=== PATIENT | female | born 1955 | race Caucasian/White ===

== ENCOUNTER → 2021-06-20 09:30 | Outpatient (CLI) | payer MEDICARE, MEDICAID, SELFPAY ==
[2021-06-20 11:53] LABS: Add Manual Diff / Slide Review NO; Basophils Absolute Auto 100 /uL (0-100); Eosinophils Absolute Auto 200 /uL (0-450); Eosinophils Percent Auto 3.9 % (2-4); Hematocrit 39.6 % (36-46); Lymphocytes Absolute Auto 1100 /uL (1100-4500); Lymphocytes Percent Auto 18.9 % (25-40); Mean Corpuscular HGB Conc 32.9 % (30-36); Mean Corpuscular Hemoglobin 31.6 PG (26-34); Monocytes Absolute Auto 700 /uL (0-900); Monocytes Percent Auto 12.1 % (3-14); Neutrophils Absolute Auto 3800 /uL (1500-7000); Neutrophils Percent Auto 64.1 % (50-75); Platelet Count 364 X10^3/uL (150-400); Red Blood Cell Count 4.12 X10^6/uL (4.0-5.2); Red Cell Distribution Width 13.7 % (11.6-14.8); White Blood Cell Count 5.9 X10^3/uL (4.5-11.0)
[2021-06-20 11:57] LABS: Hemoglobin A1C% w Est Avg Glu 5.2 % (4.0-6.0)
[2021-06-20 12:30] LABS: BUN Creatinine Ratio 22.6 (6-22); Blood Urea Nitrogen 12 mg/dL (7-17); Calcium 10.5 mg/dL (8.4-10.2); Carbon Dioxide 28 mmol/L (22-32); Chloride 102 mmol/L (98-107); Estimated Glomerular Filt Rate > 60.0 mL/min (>60); Glucose 89 mg/dL (80-110); HEMOLYSIS < 15 (0-50); Potassium 4.8 mmol/L (3.4-5.1); Sodium 138 mmol/L (137-145)
== END ==
PROVIDERS: Referring Provider Orthopaedic Surgery; Visit Provider Orthopaedic Surgery
DX: Z01.818 Encounter for other preprocedural examination (principal); R73.9 Hyperglycemia, unspecified; Z01.812 Encounter for preprocedural laboratory examination; N39.0 Urinary tract infection, site not specified
CPT/HCPCS: 36415; 80048; 83036; 85025; 93005; 93010

== ENCOUNTER → 2021-06-22 14:01 | Outpatient (CLI) | payer MEDICARE, MEDICAID, SELFPAY ==
[2021-06-22 17:32] LABS: COVID19 -Nasal RAPID Negative (Negative)
== END ==
PROVIDERS: Visit Provider Physician Assistant
DX: Z20.822 Contact with and (suspected) exposure to COVID-19 (principal)
CPT/HCPCS: 87635; C9803

== ENCOUNTER 2021-06-23 11:11 | Day surgery (SDC) | payer MEDICARE, MEDICAID, SELFPAY ==
[2021-06-18 07:29] VITALS: BMI 20.5
[2021-06-23] VITALS (15 sets, daily range): BP systolic 94–142; BP diastolic 59–87; PULSE 51–67; RESP 11–18; TEMP 36.1–37; O2SAT 97–100; BMI 20.5
--- NOTE | 2021-06-23 06:30 | DI.RAD.S_ITS ---
PROCEDURE: XR HIP W PEL IF DONE RT 2V INDICATIONS: postop films TECHNIQUE: 10 intraoperative fluoroscopic views of the hip were acquired. COMPARISON: None. FINDINGS: Intraoperative fluoroscopic images shows right total hip arthroplasty in progress. There is prior left total hip arthroplasty. IMPRESSION: Fluoro guidance was provided intraoperatively for right total hip arthroplasty. Dictated by: Dharmesh Padilla M.D. on 06/23/2021 at 17:07 Approved by: Dharmesh Padilla M.D. on 06/23/2021 at 17:07
[2021-06-23] MEDS: ACETAMINOPHEN 325 MG TABLET 975 MG PO (11:54)
[2021-06-23] MEDS: PREGABALIN 75 MG CAPSULE PO ×2 (11:58→11:59)
[2021-06-23] MEDS: CELECOXIB 200 MG CAPSULE PO (11:58)
[2021-06-23] MEDS: VANCOMYCIN 1,000 MG/200 ML PIGGYBACK 200 MG IV (11:59)
[2021-06-23] MEDS: LACTATED RINGERS 1,000 ML 42 ML IV ×2 (12:00→15:03)
--- NOTE | 2021-06-23 12:37 | PM.PREOP ---
Pre-operative Note COVID-19 COVID-19 status: Negative Interval Note History & Physical reviewed/Exam performed by Physician: Yes Changes to H&P: No
--- NOTE | 2021-06-23 12:37 | PM.OP.1 ---
Operative Date/Time/Diagnoses Date of procedure: 06/23/21 Time of procedure: 13:00 Pre-op diagnosis: Right hip osteoarthritis with femoral head collapse and AVN Post-op diagnosis: same Procedure & Clinicians Procedure: Right total hip arthroplasty anterior approach Same procedure as scheduled: Yes Indications: The patient has had progressively worsening right hip pain with radiographic changes consistent with arthritis. Non-operative management has failed and the patient has requested total hip replacement. The risks, benefits and alternatives to surgery were discussed with the patient prior to proceeding. Risks discussed included, but were not limited to, failure to relieve pain, leg length discrepancy, dislocation, stiffness, infection, nerve damage, deep venous thrombosis, pulmonary embolism, stroke, coma, heart attack, permanent paralysis and , as well as the potential need for eventual revision of the prosthetic. Surgeon: Kaila Floyd Computer Technician: Jacy Hahn Anesthesia Type: General and Spinal Operative Notes Findings: Severe right hip osteoarthritis Closure Type: primary Specimen(s): none sent Prosthetic devices, grafts, tissues, transplants, or devices: Floyd and Nephew anthology standard offset size 8 standard offset, 36 by - 3 Oxinium head, 54 cup,one 6.5 mm screw Estimated Blood Loss (mL): 250 Blood products transfused: none Procedure in detail: The patient was brought to the operating room. Patient was carefully positioned in the supine position. Time-out was performed and antibiotics were given. Anesthesia was induced. She was positioned in the on the table in order to allow hyperextension of the hip. The right lower extremity was prepped and draped in a standard sterile fashion. An anterior right hip incision was made 1 fingerbreadth lateral to the anterior superior iliac spine and extended distally towards the greater trochanter. Dissection was carried out through skin and subcutaneous tissues. Superficial hemostasis was achieved. The fascia over the tensor fascia maximo was defined and incised with a knife. Two Allis clamps were used to grasp the fascia. Tensor fascia maximo was retracted laterally. A gelpi retractor was placed. Dissection was carried out down along the neck. The circumflex vessels were carefully identified and cauterized with the Aqua Mantis. There was good visualization of the femoral neck. A Cobra was placed superior to the neck and the gluteus fibers were carefully stripped from that superior aspect of the capsule. A 2nd retractor was placed along the inferior aspect of the neck. The rectus insertion along the capsule was partially released. A 3rd retractor that was then gently placed over the rim of the acetabulum under the rectus. Capsule was carefully incised and released from the intertrochanteric line circumferentially superior to the mid sagittal line and inferiorly to the mid sagittal line until the lesser trochanter was palpable. A tag stitch was placed both in the superior and inferior limb of the capsular insertion. Along the acetabulum capsule was also released up to the mid sagittal 12:00 position. A portion of the labrum was resected. A saw was used to perform an osteotomy at the level of the intertrochanteric line and the junction of the superior femoral neck leaving approximately 1 finger breath of residual inferior neck above the lesser trochanter. A 2nd cut was made along the femoral neck at the base of the head and a napkin ring of neck was removed. Corkscrew was placed in the femoral head and the head was removed without difficulty. Retractors were then repositioned around the acetabulum. Residual labrum was resected and additional osteophytes were removed. A reamer that was 4 mm below the templated size was placed by hand in the acetabulum and it was reamed to centralize the acetabulum. It was then reamed up to 2 under the templated size and fluoroscopy was brought in to confirm the position of the reaming and depth of reaming. I reamed 1 under the anticipated size. A trial cup was placed and noted that it was appropriately sized and fluoroscopy confirmed position and depth. The component was open and inserted without difficulty fluoroscopic imaging was used to confirm that the cup had been adequately seated and was well positioned. It was further stabilized with a screw. Neutral trial liner was placed. The cup was tested and noted to be stable. Attention was then directed to the femur. The femur was gently hyperextended additional capsular release was performed as needed in order to allow adequate visualization of the proximal femur with elevation of the femur. Patient was placed in a hyperextended slightly adducted position with maximum external rotation. Box osteotome was used to check for any residual neck as well as sclerotic bone along the trochanter. [place] pepper was placed in the femur. Additional broaching was performed. Canal finder was used to determine the alignment of the canal and position. Size 1 broach was placed. The canal was then appropriately broached up to the templated size as long as there was adequate stability of the broach and serial advancement of the broach without excessive impingement. Specific attention was directed at avoiding varus attempting to direct the distal aspect of the broach more anteriorly and avoiding excessive anteversion. Trial reduction showed acceptable range of motion, good stability, no posterior impingement, zoroastrianism of leg length and appropriate lateral shuck. I also hyperflexed the hip and checked that there was no impingement anteriorly and there was good stability with flexion, adduction and internal rotation. Marcaine and Exparel were injected. The stem was placed without difficulty. Repeat trial reduction and x-ray showed acceptable overall position, length, and no evidence of the femoral fracture. Final head was placed. Wound was meticulously irrigated with normal saline. The hip was reduced and additional Exparel and Marcaine were injected. The capsule was closed with interrupted nonabsorbable sutures. The fascia of the tensor was closed with interrupted and running Vicryl. No drain was placed. Any tensor fascia maximo muscle that appeared to be contused or injured which was a minimal amount was carefully resected. Capsule around the tensor was injected with Exparel and Marcaine. The skin was closed with barbed stitches for the subcutaneous tissue and skin. We also used surgical glue. The wound was dressed sterilely. Brief Betadine soak was also used and was meticulously irrigated with normal saline. Patient was transferred to recovery room in satisfactory condition. Complications: none Post-operative Condition: stable Disposition: Acute Care Plan for aftercare: The patient will be maintained on a standard total hip replacement protocol with weight bearing as tolerated and anterior hip precautions. The patient will receive Aspirin and sequential compression devices for DVT prophylaxis. The patient will be discharged home when safe for the home environment.
--- NOTE | 2021-06-23 12:47 | SUR.PREOP ---
CGH bath done with 6 wipes as patient did not do home pre-wash or Mupericon. Dr Floyd notified. procedure: CHG Bathing Process?Using All Cloths Use all six cloths in the following order: Cloth 1: Neck, shoulders, and chest. Cloth 2: Both arms, both hands, web spaces, and axilla. Cloth 3: Abdomen and then groin/perineum. Cloth 4: Right leg, right foot, and web spaces. Cloth 5: Left leg, left foot, and web spaces. Cloth 6: Back of neck, back, and then buttocks.
[2021-06-23] MEDS: CEFAZOLIN 1 GM VIAL 2 GM IV ×2 (13:22→22:11)
[2021-06-23] MEDS: TRANEXAMIC ACID 1,000 MG VIAL 1000 MG INJ ×2 (13:25→15:36)
--- NOTE | 2021-06-23 13:42 | SUR.OPER ---
Patient supine on padded [place] table, one arm on padded arm board at <90, other arm padded and secured with tape across patient's chest, both legs secured in padded traction boots and positioned per surgeon, padded post at patient's groin, pressure points checked and padded.
[2021-06-23] MEDS: BUPIVACAINE LIPOSOME 266 MG/20 ML VIAL INJ (13:48)
[2021-06-23] MEDS: BUPIVACAINE 0.25% (PF) VIAL 30 ML INJ (13:49)
[2021-06-23] MEDS: EPINEPHrine 1 MG/ML SUBCUT (13:50)
--- NOTE | 2021-06-23 16:00 | DI.RAD.S_ITS ---
PROCEDURE: XR HIP W PEL IF DONE RT 2V INDICATIONS: RIGHT TOTAL HIP TECHNIQUE: AP pelvis and lateral view of the right hip acquired. COMPARISON: [facility], ROM, XR HIP W PEL IF DONE RT 2V, 06/23/2021, 14:40. FINDINGS: Bones: Patient is status post right total hip arthroplasty, with hardware components in expected positions. The hip joint appears congruent. The visualized bony structures appear intact. There is also prior left total hip arthroplasty with anatomic left hip alignment. Soft tissues: Overlying postoperative changes are noted. No suspicious soft tissue densities. IMPRESSION: Postop changes from right total hip arthroplasty with anatomic right hip alignment. Dictated by: Dharmesh Padilla M.D. on 06/23/2021 at 17:09 Approved by: Dharmesh Padilla M.D. on 06/23/2021 at 17:10
--- NOTE | 2021-06-23 16:59 | SUR.PHASEI ---
PACU: REPORT GIVEN by phone TO HERMINIA QUINONEZ. PATIENT BROUGHT UP TO RM 217 WITH ALL BELONGINGS IN STABLE CONDITION. MET CRISTIANO HOPE AT BEDSIDE FOR FACE TO FACE HANDOFF. VSS, SCD'S ON, BED LOCKED IN LOW POSITION. CALL LIGHT IN REACH.
[2021-06-23] MEDS: IBUPROFEN 400 MG TABLET PO ×2 (19:57→22:17)
[2021-06-23] MEDS: LACTATED RINGERS 1,000 ML 125 ML IV (19:58)
--- NOTE | 2021-06-23 20:01 | PC.NURSE ---
1700: report from Asya at bedside. patient arrived from PACU, denies pain/discomfort, smiling and alert/oriented. small aquacel dressing to R hip CDI. patient wants to rest for a bit, allowed to sleep. 1999: denies pain/discomfort, ice pack offered. able to change position w/o difficulty. + CSM checks. continues w/ IVF. SCDs on, call light w/in reach.
[2021-06-23] MEDS: ACETAMINOPHEN 325 MG TABLET 650 MG PO (22:10)
[2021-06-23] MEDS: ASPIRIN EC 81 MG TABLET PO (22:14)
[2021-06-23] MEDS: DOCUSATE 100 MG CAPSULE PO (22:15)
[2021-06-23] MEDS: LORazepam 0.5 MG TABLET PO (22:23)
[2021-06-24] VITALS: BMI 20.5
[2021-06-24] MEDS: CEFAZOLIN 1 GM VIAL 2 GM IV (04:44)
[2021-06-24 04:54] VITALS: BP 103/59; PULSE 54; RESP 14; TEMP 36.4; O2SAT 96
[2021-06-24 06:32] LABS: Hematocrit 33.2 % (36-46); Hemoglobin 10.8 g/dL (12.0-16.0)
[2021-06-24 07:25] VITALS: BP 96/63; PULSE 56; RESP 14; TEMP 36.4; O2SAT 97
--- NOTE | 2021-06-24 08:17 | P.DS_ITS ---
History of Present Illness History of Present Illness Date Patient Seen: 06/24/21 Time Patient Seen: 08:17 Chief complaint: Right hip pain Narrative: Patient states her right hip pain is mild. Denies fever or chills. No nausea or vomiting. Patient does have caregiver home to assist her. Discharge Providers Provider Discharge Date: 06/24/21 Consults: 06/23/21 06:30 Consult to Anesthesiology Routine Comment: Consulting Provider: Anesthesiologist Reason for consultation: Regional block for post operative pain control 06/23/21 17:23 Consult to Discharge Planning Routine Comment: Consult to Physical Therapy Evaluate & Treat Comment: Physician Instructions: post op MAYA protocol Consult to Respiratory Therapy Evaluate & Treat Comment: Physician Instructions: Evaluate and treat Discharge provider: Liu Cunha PA-C Summary Hospital Course Discharge Diagnosis: Right hip osteoarthritis with femoral head collapse and AVN Hospital Course: Right total hip arthroplasty anterior approach Same procedure as scheduled: Yes Indications: The patient has had progressively worsening right hip pain with radiographic changes consistent with arthritis. Non-operative management has failed and the patient has requested total hip replacement. The risks, benefits and alternatives to surgery were discussed with the patient prior to proceeding. Risks discussed included, but were not limited to, failure to relieve pain, leg length discrepancy, dislocation, stiffness, infection, nerve damage, deep venous thrombosis, pulmonary embolism, stroke, coma, heart attack, permanent paralysis and , as well as the potential need for eventual revision of the prosthetic. Surgeon: Kaila Floyd Material Requisitioner: Jacy Hahn Anesthesia Type: General and Spinal Operative Notes Findings: Severe right hip osteoarthritis Closure Type: primary Specimen(s): none sent Prosthetic devices, grafts, tissues, transplants, or devices: Floyd and Nephew anthology standard offset size 8 standard offset, 36 by - 3 Oxinium head, 54 cup,one 6.5 mm screw Estimated Blood Loss (mL): 250 Blood products transfused: none Patient admitted to the hospital for the above-mentioned procedure. Patient consented to the same. Patient underwent right total hip arthroplasty, anterior approach on June 23, 2021. Patient back in her room recovering well as in stable condition. Patient will be discharged home today after physical therapy of safe for home environment. Status at Discharge Cognitive/behavioral status at discharge: at baseline, oriented Functional status at discharge: uses cane/walker Overall status at discharge: patient is progressing back to baseline Exam Vital Signs (past 8 hours): - 06/24/21 04:54 06/24/21 07:25 Temperature 97.5 F L 97.5 F L Pulse Rate 54 L 56 L Respiratory Rate 14 14 Blood Pressure 103/59 L 96/63 Pulse Oximetry 96 97 Oxygen Delivery Method Room Air Oxygen Flow Rate 0 Narrative Exam Narrative: Pleasant 65-year-old female resting comfortably in bedside chair in no apparent distress. Dressing is Clean, dry, intact.. Neurovascular status is intact bilateral lower extremities. Objective Labs Result Diagrams: 06/24/21 04:50 Labs: Laboratory Results - last 24 hr 06/24/21 04:50 Hgb 10.8 L Hct 33.2 L PFSH Social History household members: family Smoking Status: Former smoker alcohol intake: current Discharge Assessment & Plan Assessment and Plan Assessment: Patient progressing as expected status post right total hip arthroplasty, anterior approach Plan of Treatment: Weight-bearing as tolerated Anterior hip precautions Discharge home today in stable condition. Discharge Plan Discharge Plan Patient Disposition: Home Provider Discharge Comment: Discharge home today after physical therapy if safe Discharge orders & Medications Discharge Orders: Discharge (Order); Ordered 06/24/21 Ordered By: Liu Cunha Prescriptions: New acetaminophen 325 mg Tablet 650 mg PO TID Qty: 60 RF: 0 polyethylene glycol 3350 17 gram Powder In Packet 17 gm PO DAILY PRN (Reason: Constipation) Qty: 10 RF: 0 aspirin 81 mg Tablet,Delayed Release (Dr/Ec) 81 mg PO BID Qty: 60 RF: 0 ibuprofen 400 mg Tablet 400 mg PO Q4HR Qty: 60 RF: 0 oxycodone 5 mg Tablet 5 mg PO Q3HR PRN (Reason: Pain, Moderate (4-6)) Qty: 40 RF: 0 Continued lorazepam 0.5 mg Tablet 0.5 mg PO BEDTIME PRN (Reason: Insomnia) RF: 0 Follow up/Referrals: Kaila Floyd MD [Physician] - ( 2 weeks) Diet/Activity/Treatments Diet: Diet as Tolerated Activity: Weight-bearing as tolerated with anterior hip precautions Cold/Heat Therapy: Ice as needed Skin/Wound/Dressing Care Report to your healthcare provider any signs of infection, such as:: chills, fever, increased pain, unusual drainage and unusual redness Dressing: Keep dressing clean and dry Visit Report/Discharge Packet Instructions: DI for Hip Replacement Stand Alone Forms: Surgery Discharge Discharge Data Attending Provider: Kaila Floyd
[2021-06-24 09:40] VITALS: O2SAT 93
[2021-06-24] MEDS: OXYCODONE IR 5 MG TABLET PO ×2 (09:52→13:53)
[2021-06-24] MEDS: ASPIRIN EC 81 MG TABLET PO (09:53)
[2021-06-24] MEDS: IBUPROFEN 400 MG TABLET PO (09:53)
[2021-06-24] MEDS: ACETAMINOPHEN 325 MG TABLET 650 MG PO (09:53)
[2021-06-24] MEDS: DOCUSATE 100 MG CAPSULE PO (09:53)
--- NOTE | 2021-06-24 11:09 | CM.DANOTE ---
DCP: Case received, EMR reviewed and met with patient. Introduced self and role. Was able to obtain information regarding patient's baseline activity status prior to surgery, as well as her current living situation. DCP assessment completed with information currently available. Patient is a 65 year old female who admitted yesterday morning to the care of the orthopedic team. PCP: Dr. Cobian. Payer: confirmed: Medicare/Medicaid [employer] Program. Patient came to the hospital via private vehicle for a surgical procedure. She had right total hip arthroplasty. Patient has history of osteoarthritis. Met with patient in her room. She was sitting up in her chair, alert and oriented. Confirmed that patient resides in [place] alone. She is a , independent at her baseline. She does use a cane if needed. Stated, she used to get around better, would ride her bike 15 miles, but her hip became worse, and not able to do this. She indicated that she would be staying with her brother, Kwame, when she goes home. P: Patient is supposed to discharge home today. Cristal Elizondo RN/Production Technologist
[2021-06-24 11:17] VITALS: BP 108/71; PULSE 60; RESP 16; TEMP 36.7; O2SAT 96
--- NOTE | 2021-06-24 11:35 | PT.IIE ---
Current Diagnoses Unilateral primary osteoarthritis, right hip (06/23/21) Surgery Performed Operation Date: 06/23/21 13:15 Actual Procedures p Total Hip Arthroplasty/Anterior Approach(Right) - Kaila Floyd MD Physical Therapy Inpatient Evaluation/Re-Eval M1 PT/OT-IP Prior Functional Status Start: 06/24/21 14:48 Freq: NEEDED Status: Active Protocol: Document 06/24/21 11:35 AB (Rec: 06/24/21 14:59 AB [id number]) Medical Review Prior Functional Status Medical History Reviewed Yes Communication able to make needs known Mobility and Gait pt stated that she is modified independent with all mobilities and ambulation without AD but has maxx using her SPC for the last 3-4 months due to hip pain Social History Household Members family,none Living Arrangements Mobile home Number of Floors (Floors) One Floor Number of Stairs To Enter/Railing? 2 steps L rail to enter Home Environment Standard Height Toilet,Walk in Shower Home Equipment Straight Cane,Hand Held Shower ,Grab Bars Near Toilet,Grab Bars In Shower Additional Social History Comment pt's lives on a motor home next to her brother's house; pt stated that she is going to stay at her brother house upon d/c M2 PT-IP Current Condition Start: 06/24/21 14:48 Freq: NEEDED Status: Active Protocol: Document 06/24/21 11:35 AB (Rec: 06/24/21 14:59 AB [email or web address]) Physical Therapy Current Condition Current Condition Evaluation Date 06/24/21 Treatment Diagnosis s/p R MAYA anterior approach; difficulty in walking Onset Date 06/23/21 Precautions Anterior Hip Precautions No Hip Extension,No Hip External Rotation Weight Bearing Status Weight Bearing Status Weight Bear as Tolerated Allowed Weight Bearing Amount (enter % RLE WBAT or #) (%) M3 PT-IP Subjective Start: 06/24/21 14:48 Freq: NEEDED Status: Active Protocol: Document 06/24/21 11:35 AB (Rec: 06/24/21 14:59 AB [email or web address]) Subjective Physical Therapy Visit Type Type Initial Evaluation Visit Start Time 11:35 Visit Stop Time 12:20 Total Visit Minutes 45 Number of LIBRARIAN SPECIAL LIBRARY Visits 0 Physical Therapy Visit Comments Patient Comments agreeable to do PT Therapy Pain Assessment Pain Present Pain Present Denied Pain M4 PT-IP Mobility and Gait Start: 06/24/21 14:48 Freq: NEEDED Status: Active Protocol: Document 06/24/21 11:35 AB (Rec: 06/24/21 14:59 AB [id number]) PT-Bed Mobility Assessment Supine to Sit Supine to Sit Standby Assistance Sit to Supine Sit to Supine Standby Assistance PT-Transfer Assessment Sit to and From Stand Sit to and from Stand Standby Assistance,Use of Upper Extremities Equipment Transfer Assistive Device Gait Belt,Front Wheeled Walker Orthotic/Prosthetic Devices or Brace: No Transfers Transfer Destination Chair Transfer Technique ambulated Transfer Ability Level of Assist Standby Assistance,1 Person Assistance,Use of Upper Extremities Comments Mobility Comments educated pt on hip precautions . completed supine to sit SBA. ambulated in room using FWW SBA. pt stated that she will be buy a FWW at the [employer] or the [employer]. ambulated in the hallway using FWW SBA ~ 200 ft. completed up/down steps using L rail initially min A and cues but able to complete CGA on 2nd set. pt ambulated back to her room SBA using FWW. sat on chair and positioned. set up for lunch. call light and table placed within reach. pt plans to stay at her brother's house upon d/c and stated that her brother will be able to assist her. Gait Assessment Gait Gait Assistance Required: Standby Assistance Distance (Feet) 200 Able to Maintain Weight Bearing Status Yes During Gait Assistive Devices Assistive Device Gait Belt,Front Wheeled Walker Orthotic/Prosthetic Devices or Brace: No Gait Deviations General Gait Pattern Decreased Stride Length, Decreased Feet Clearance Factors Limiting Gait Function Factors Limiting Gait Function Decreased Activity Tolerance, Decreased Strength,Difficulty Following Directions,Limited Range of Motion Stair Climbing Assessment Evaluation Level of Assist On Stairs Contact Guard Assistance Devices Stair Climbing Assistive Devices Left Railing Technique/Endurance Stair Climbing Direction Ascend and Descend Stair Climbing Technique Step to Step Number of Steps Climbed 3 Query Text: Stair Climbing Set # Repetitions (reps) 2 PT-Balance Assessment Sitting Balance and Reactions Static Sitting Balance Ability Good Dynamic Sitting Balance Ability Good Standing Balance and Reactions Static Standing Balance Ability Fair Dynamic Standing Balance Ability Fair Device Used FWW M5 PT-IP Objective Assessments Start: 06/24/21 14:48 Freq: NEEDED Status: Active Protocol: Document 06/24/21 11:35 AB (Rec: 06/24/21 14:59 AB [id number]) Orientation Orientation/Cognition Level of Alertness Confusional State Orientation Name,Place,Situation Language Function Ability No Deficits Noted Safety Awareness Decreased Safety Awareness Memory Description Short Term Impaired Gross Range of Motion Lower Extremity ROM Assessment Within Functional Limits Strength Lower Extremity Strength Assessment Right Impaired Hip 4-/5 Knee 4-/5 Sensation Assessment Sensation Gross Sensation WNL Muscle Tone Muscle Tone WNL Yes M6 PT-IP Treatment Start: 06/24/21 14:48 Freq: NEEDED Status: Active Protocol: Document 06/24/21 11:35 AB (Rec: 06/24/21 14:59 AB [id number]) Physical Therapy Treatment Education Education Provided Precautions,Weight Bearing Status,Post-Op Packet,Safety M7 PT-IP Assessment and Plan Start: 06/24/21 14:48 Freq: NEEDED Status: Active Protocol: Document 06/24/21 11:35 AB (Rec: 06/24/21 14:59 AB [email or web address]) PT Summary Assessment and Plan Potential Rehabilitation Potential Good Status of Condition at Evaluation Stable Summary Impairments Pain,ROM,Strength,Balance, Coordination,Sensation,Tone, Cognition,Bed Mobility, Transfers,Gait,Activity Tolerance Assessment Summary pt requiring SBA with ambulation using FWW and CGA for stair climbing using L rail. pt stated that her brother will be able to assist her as needed. reminded pt regarding setting up outpt PT and agreed. Goals Bed Mobility Goal Independent Transfer Goal Independent,Front Wheeled Walker Gait Goal Independent,Front Wheel Walker Gait Distance 250 Other Goals up/down 2 steps L rail ascending SBA Days to Meet Goals 5 Frequency of Treatment Frequency Of Treatment Twice a Day Treatment Plan Physical Therapy Treatment Plan Bed Mobility Training,Transfer Training,Gait Training, Therapeutic Exercise,Balance Retraining,Post Op Education, Discharge Planning,Hot or Cold Pack,Neuromuscular Re-ed, Coordination Retraining,Manual Therapy Precautions Anterior Hip Precautions No Hip Extension,No Hip External Rotation Other Precautions WBAT RLE Recommendations To Nursing Amount of Assist Needed Standby Assistance Discharge Recommendations PT Discharge Recommendations Home with Assistance, Outpatient PT Equipment Needed for Home Before FWW Discharge Transportation Needs at Discharge Private Vehicle
--- NOTE | 2021-06-24 15:54 | PC.NURSE ---
Discharge: Feels ready to d/c home. Seen by MD and given instructions. Seen by PT and cleared. Understands her total hip precautions. Reviewed discharge packet. Rx was esent. Wound care instructions given. Questions answered. Pt d/c home via auto brother.
== END 2021-06-24 15:10 | disposition home or self-care (01) ==
LOC: OR 11:18 → AC 13:18
PROVIDERS: Referring Provider Physical Medicine & Rehabilitation Pain Medicine; Visit Provider Orthopaedic Surgery
PROC: (CPT 27130; principal; 2021-06-23 13:15)
DX: M16.11 Unilateral primary osteoarthritis, right hip (principal); M87.051 Idiopathic aseptic necrosis of right femur
CPT/HCPCS: 27130; 36415; 73502; 76000; 85014; 85018; 97161; 97530; C1776; C9290; J0171; J0690

== ENCOUNTER → 2022-07-19 10:40 | Outpatient (CLI) | payer MEDICARE, SELFPAY ==
--- NOTE | 2022-07-19 | DI.CT.S_ITS ---
PROCEDURE: CT LE LT W CON INDICATIONS: TROCHANTERIC BURSITIS LEFT HIP TECHNIQUE: Noncontrast 3 mm axial sections acquired through the bony pelvis. Additional 3 mm axial sections acquired through the symptomatic hip joint, with coronal and sagittal reformats. COMPARISON: [facility] Outside Film, CT, CT HIP LEFT WITHOUT CONTRAST, 01/31/2022, 21:50. FINDINGS: Image quality: Diagnostic. Beam hardening artifacts from bilateral hip prosthesis are seen. Bones: Patient is status post bilateral total hip arthroplasty. Bilateral hip alignment is anatomic. No gross acute fracture or dislocation. No evidence of gross hardware loosening or failure. No suspicious intraosseous lesions. Soft tissues: There is fluid distending left greater trochanteric bursa consistent with bursitis. No abnormal soft tissue calcifications are seen. No other muscle or soft tissue abnormality is seen. There is no pelvic free fluid or free air. Bulky appearing uterus for patient's age is noted which may represent multiple uterine fibroids. No inguinal lymphadenopathy. IMPRESSION: 1. Prior bilateral total hip arthroplasty with anatomic hip alignment. No fracture or dislocation. No evidence of hardware complication. 2. Fluid distending left greater trochanteric bursa consistent with patient's clinical diagnosis of trochanteric bursitis. No other area of fluid collection or abnormal soft tissue calcification is seen. 3. Incidentally noted of bulky appearing uterus for patient's age which may represent uterine fibroids. No pelvic free fluid or free air. Dictated by: Dharmesh Padilla M.D. on 07/19/2022 at 12:13 Approved by: Dharmesh Padilla M.D. on 07/19/2022 at 12:24
== END ==
PROVIDERS: Referring Provider Orthopaedic Surgery; Visit Provider Orthopaedic Surgery
DX: M70.62 Trochanteric bursitis, left hip (principal); Z96.643 Presence of artificial hip joint, bilateral
CPT/HCPCS: 73700